=== PATIENT | female | born 1990 | race Caucasian/White ===

== ENCOUNTER 2017-02-11 19:50 | Emergency (ER) | payer BC ==
[~2017-02-11] VITALS: Ht 165.1 cm; Wt 90.7 kg
[~2017-02-11 19:50] MED LIST: BACTRIM DS 8001 TA1 PO; BACTRIM DS 8001 TAB PO; CIPRO 500MG TA500 MG PO; DARVOCET-N 1001 EACH PO; K-DUR 20MEQ TA20 MEQ PO; LORTAB 5/500 501 TAB PO; MULTIVITAMIN1 TA1 PO; PERCOCET 5/3251 EACH PO; SULFAMETHOXAZOL1 TA6 PO; TESSALON PERLE100 M1 PO; ULTRAM50 MG PO; ZITHROMAX Z PA250 MG PO
--- NOTE | 2017-02-11 20:18 | Urgent Treatment Center Report ---
History of Present Issue Date/Time Seen by Provider 02/11/17 2016 Visit Reason Pt arrived:Walked Presenting Problem:PT C/O SORE THROAT, FEVER, BILATERAL EAR PAIN AND LACK OF ENERGY X1 WEEK Location if Accident: Onset of symptoms date/time:/ or onset unknown for:MEDICAL HX UNKNOWN Have you (or family members/close friends) recently traveled outside the [place]? N If Yes, where/when: Have you had exposure to infectious disease within the past month? TB? Other? Specify: Patient presents with c/o headache, sore throat, fatigue, sinus pressure/ congestion, cough and bilateral ear pressure that started one week ago. Denies recent exposure to known ill persons. Has been taking ibuprofen without relief. ALLERGIES Coded Allergies: No Known Allergies (02/11/17) Home Medications Reported Medications POTASSIUM CHL (Potassium Chloride) 60 MEQ PO QID History Medical History General CAD? No Angina: No PA: No Hypertension? No Hyperlipidemia? No CHF? No DVT? No PE? No COPD? No Asthma? Yes Anemia? No GERD? No Gastric ulcers? No GI Bleed? No Hernia? No Thyroid Problems? No Hypothyroidism? No CVA? No Seizures? No Diabetes? No Renal Insuffiency? No UTI? No Stones? No BPH? No GB Disease: No Nephritic Syndrome? No Asplenia? No Hepatitis? No Sickle Cell Disease? No Arthritis? No Migraines? No Cataracts? No Glaucoma? No MRSA? No HIV? No TB? No Anxiety? No Depression? No Cancer? No More? No Immunization HX DT/Tetanus 5-10 YRS Surgical Hx Previous Surgery?Y RIGHT HAND Plastic R AXILLIA Social History Smoking Hx Smoker: Current Every Day Smoker Tobacco: Yes Type Cigarettes Packs/day < 1 Pack Alcohol Alcohol: No Review of Systems All Other Systems Reviewed and Negative Constitutional chills, fever Eyes denies drainage ENT ear pain, nose congestion, throat pain, throat swelling. Respiratory cough, denies shortness of breath, denies stridor, denies wheezing Gastrointestinal denies diarrhea, denies nausea, denies vomiting Skin denies no symptoms reported Physical Exam Vital Signs Vital Signs Date Time Temp Pulse Resp B/P Pulse O2 O2 Flow FiO2 Ox Delivery Rate 02/12 2048 98.6 110 20 118/79 96 02/11 2007 98.6 110 20 118/79 96 General Appearance normal appearance, WD/WN, no apparent distress Eye Exam - bilateral eye normal exam, bilateral eye PERRL Ear, Nose, Throat sinus pain/drainage (bilateral frontal/maxillary), pharyngeal erythema (moderate) Neck non-tender, full range of motion, bilateral anterior cervical adenopathy, bilateral TMs intact; right TM extremely erythematous without drainage noted; left TM without erythema, moderate serous effusion noted Respiratory Status Yes: trachea midline, chest symmetrical. No: respiratory distress. Lung Sounds bilateral: normal breath sounds. Cardiovascular regular rate/rhythm, no peripheral edema, no murmur Neurologic alert, no motor/sensory deficits, oriented x 3 Mental status normal mood/affect Skin intact, normal color, warm/dry Medical Decision Making LABS/Meds/Orders Pt receiving controlled substance in ED? No Results/Orders Laboratory Tests 02/11/171954: Group A Strep Screen NOT DETECTED Orders Procedure Date/time Status [facility] STREP SCREEN 02/11 1955 Complete Departure Departure Time of Disposition 2030 Disposition DC Home or Self Care(routine) Clinical Impression Primary Impression: Sinusitis, acute, maxillary Qualifiers: Recurrence: not specified as recurrent Qualified Code: J01.00 - Acute maxillary sinusitis, unspecified Secondary Impressions: Otitis media of right ear Qualifiers: Otitis media type: other nonsuppurative Chronicity: acute Recurrence: not specified as recurrent Qualified Code: H65.191 - Other acute nonsuppurative otitis media, right ear Condition STABLE Patient Instructions DI for Sinusitis Additional Instructions Take medications as directed. Increase fluids and rest. If symptoms persist or worsen follow-up with PCP for further evaluation. Patient verbalizes understanding. Discharge Counseling Counseled pt/family regarding diagnosis, medications/RX, home care, follow up needs Prescriptions Current Visit Scripts Fluticasone Propionate (Flonase 50 Mcg Nasal [place]) 2 SPRAY NA DAILY #1 BOT Amoxicillin/Potassium Clav (Augmentin 875-125 Tablet) 1 EACH PO Q12 #20 TAB take one tablet every 12 hours for 10 days Loratadine (Claritin 10MG) 10 MG PO DAILY #30 TAB Prednisone 5 MG PO DAILY #21 TAB take as directed for 6 days at 9921
[2017-02-11] MEDS ORDERED: FLONASE 50 MCG16 GM (20:35)
[2017-02-11] MEDS ORDERED: PREDNISONE5 M1 PO (20:38)
[2017-02-11] MEDS ORDERED: CLARITIN 10MG T10 MG PO (20:38)
[2017-02-11] MEDS ORDERED: AUGMENTIN 875-1 EACH PO (20:38)
[2017-02-11 20:48] VITALS: BP 118/79
--- OUTSIDE RECORDS SUMMARY | 2017-02-12 22:05 | External Medical Summary Rpt | CCD ---
Author Author , NICOLE RIVERA Address Unknown Phone [email or web address] Care Team Providers Care Plant Electrician Name Role Phone Mando Duff MD, Unavailable Unavailable Mando Duff MD Purpose Continuity of Care Document - 12-05-2012 through 2016 Problems Code Diagnosis DOS Provider Status 276.8 276.8 12-05-2012 [place] HYPOPOTASSE [facility] 305.1 305.1 12-05-2012 [place] TOBACCO USE [facility] [phone] 12-05-2012 [place] PNEUMONIA, [facility] NOS 493.90 493.90 12-05-2012 [place] [facility] Allergies, Adverse Reactions, Alerts Type Allergy to substance Adverse Reaction to Substance Substance Reaction Severity NO KNOWN ALLERGIES Unknown Unknown Medications Na ND Rx Da Fi Fi Am Da Di Ph RX Ph St me C No te ll ll ou ys ag ar # ys at rm s nt no ma ic us Or Da si cy ia de te s n re d SO 00 08 0 No DI 40 -0 UM 97 6- Lo 98 20 ng CH 30 13 er LO 9 RI Ac DE ti ve 0. 9% SO YADIEL TI ON ON 00 08 0 No DA 64 -0 NS 16 6- Lo ET 08 20 ng RO 02 13 er N 5 HC Ac L ti 4 ve MG /2 ML AL Po 00 08 0 No ta 24 -0 ss 50 6- Lo iu 05 20 ng m 80 13 er Ch 1 lo Ac ri ti de ve 20 ME Q Ta bl e BE 57 08 0 No NZ 66 -0 ON 40 6- Lo AT 13 20 ng AT 38 13 er E 8 10 Ac 0 ti MG ve CA PS UL E CE 00 08 0 No FT 40 -0 RI 97 6- Lo AX 33 20 ng ON 30 13 er E 4 1 Ac GM ti ve AL Vital Signs 12-05-2012 02:15 Name Value Interpretat Reference Comment ion Range BP 65 mm[Hg] Diastolic BP Systolic 113 mm[Hg] Heart 86 /min Rate/Pulse O2% 95 % Respiratory 20 /min Rate Results Labs Lab Lab Date Result Refere Interp Status Commen Order Detail nces retati t Range on COMPREHENSIVE METABOLIC PANEL (12-05-2012 00:35) Glucose 148 74-106 complet 013 mg/dL ed Bld-mCn 00:35 c BUN 12-05-2 11 7-18 complet Bld-mCn 013 mg/dL ed c 00:35 Creat 2 1.0 0.6-1.0 complet SerPl-m 013 mg/dL ed Cnc 00:35 ESTIMAT 2 126 50-200 complet ED 013 ML/MIN ed CREATIN 00:35 INE CLEARAN CE GFR 69 59- complet (ESTIMA 013 ML/MIN ed RENATA) 00:35 Sodium 12-05-2 138 136-145 complet SerPl-s 013 mmoL/L ed Cnc 00:35 Potassi 2 1.7 3.5-5.1 Low complet um 013 mmoL/L alert ed SerPl-s 00:35 Cnc Chlorid 2 95 98-107 complet e 013 mmoL/L ed SerPl-s 00:35 Cnc CO2 12-05-2 33 21.0-32 complet SerPl-s 013 mmoL/L .0 ed Cnc 00:35 Calcium 12-05-2 8.5 8.5-10. complet 013 mg/dL 1 ed SerPl-m 00:35 Cnc Prot 2 8.0 6.4-8.2 complet SerPl-m 013 gm/dL ed Cnc 00:35 Albumin 06-2 3.6 3.4-5.0 complet 013 gm/dL ed SerPl-m 00:35 Cnc Globuli 12-05-2 4.4 1.3-3.2 complet n 013 gm/dL ed Ser-mCn 00:35 c Albumin 12-05-2 0.8 UNK 1.1-1.8 complet /Glob 013 ed SerPl-m 00:35 Rto Bilirub 2 0.4 0.2-1.0 complet 013 mg/dL ed SerPl-m 00:35 Cnc AST 08-06-2 19 U/L 15-37 complet SerPl-c 013 ed Cnc 00:35 ALT 08-06-2 46 U/L 30-65 complet SerPl-c 013 ed Cnc 00:35 ALP 08-06-2 95 U/L 50-136 complet SerPl-c 013 ed Cnc 00:35 CBC with AUTO DIFF (12-05-2012 00:35) WBC # 08-06-2 9.6 4.8-10. complet Bld 013 K/MM3 8 ed Auto 00:35 RBC # 08-06-2 5.14 4.2-5.4 complet Bld 013 M/mm3 ed Auto 00:35 Hgb 08-06-2 14.4 12.2-16 complet Bld-mCn 013 g/dL .2 ed c 00:35 Hct Fr 08-06-2 42.3 % 37.0-47 complet Bld 013 .0 ed 00:35 MCV RBC 08-06-2 82.3 fl 82.2-97 complet 013 .8 ed 00:35 MCH RBC 08-06-2 28.1 pg 27-31.2 complet Qn 013 ed Auto 00:35 MEAN 08-06-2 34.1 31.8-35 complet CORPUSC 013 g/dl .4 ed ULAR 00:35 HGB CONC RDW RBC 08-06-2 14.8 % 11.5-17 complet Auto 013 .5 ed 00:35 Platele 08-06-2 235 142-424 complet t Bld 013 K/mm3 ed Ql 00:35 Manual MEAN 08-06-2 7.8 fl 7.4-10. complet PLATELE 013 4 ed T 00:35 VOLUME Granulo 08-06-2 62.9 % 37.0-80 complet cytes 013 .0 ed Fr Bld 00:35 Auto LYMPH % 08-06-2 28.8 % 10-50.0 complet 013 ed 00:35 Monocyt 08-06-2 6.4 % 1.7-9.3 complet es Fr 013 ed Bld 00:35 Auto Eosinop 08-06-2 1.4 % 0.1-12. complet hil Fr 013 0 ed Bld 00:35 Auto Basophi 08-06-2 0.5 % 0.1-2.0 complet ls Fr 013 ed Bld 00:35 Auto Granulo 08-06-2 6.1 1.8-7.8 complet cytes # 013 K/mm3 ed Bld 00:35 Auto Lymphoc 08-06-2 2.8 0.7-4.5 complet ytes Fr 013 K/mm3 ed Bld 00:35 Auto Monocyt 0806-2 0.6 0.1-1.0 complet es # 013 K/mm3 ed Bld 00:35 Auto Eosinop 08-06-2 0.1 0.0-0.4 complet hil # 013 K/mm3 ed Bld 00:35 Auto Basophi 08-06-2 0.1 0-0.2 complet ls # 013 K/MM3 ed Bld 00:35 Auto B-HCG Ur Ql (12-05-2012 00:20) B-HCG 12-05-2 NEGATIV NEG complet Ur Ql 013 E ed 00:20 URINALYSIS/COMPLETE (12-05-2012 00:20) URINE 12-05-2 YELLOW YELLOW complet COLOR 013 ed 00:20 URINE 12-05-2 CLEAR CLEAR complet APPEARA 013 ed NCE 00:20 URINE 12-05-2 NEGATIV NEG complet GLUCOSE 013 E ed - 00:20 DIPSTIC K URINE 12-05-2 NEGATIV NEG complet BILIRUB 013 E ed IN - 00:20 DIPSTIC K URINE 12-05-2 NEGATIV NEG complet KETONE 013 E mg/dL ed 00:20 URINE 12-05-2 1.020 1.005-1 complet SPECIFI 013 UNK .030 ed C 00:20 GRAVITY URINE 12-05-2 2+ NEG complet BLOOD 013 ed 00:20 URINE 12-05-2 6.5 UNK 5.0-8.5 complet PH 013 ed 00:20 URINE 0806-2 TRACE NEG complet PROTEIN 013 mg/dL ed - 00:20 DIPSTIC K URINE 12-05-2 0.2 NEG complet UROBILI 013 E.U./dL ed NOGEN - 00:20 DIPSTIC K URINE 0806-2 NEGATIV NEG complet NITRATE 013 E ed - 00:20 DIPSTIC K URINE 0806-2 TRACE NEG complet LEUK 013 ed ESTERAS 00:20 E URINE 12-05-2 3-5 0 complet RBC 013 rbc/hpf ed 00:20 URINE 0806-2 3-5 O complet WBC 013 wbc/hpf ed 00:20 URINE 10-20 0-5 complet SQUAMOU 013 #/hpf ed S CELLS 00:20 URINE TRACE O complet BACTERI 013 ed A 00:20 URINE OCC OCC complet MUCUS 013 ed 00:20 Encounters Encounter Start End Date Code Location Performer Type Date Emergency ANA Duff MD (ER) 3 00:20 3 02:23 [facility]
--- OUTSIDE RECORDS SUMMARY | 2017-02-12 22:05 | External Medical Summary Rpt | CCD ---
Author Author , NICOLE RIVERA Address Unknown Phone [email or web address] Providers Care Arabic Professor Name Role Phone Mando Duff MD, Unavailable Unavailable Mando Duff MD Purpose Continuity of Care Document - 12-05-2012 through 2016 Problems Code Diagnosis DOS Provider Status 276.8 276.8 12-05-2012 [place] HYPOPOTASSE [facility] 305.1 305.1 12-05-2012 [place] TOBACCO USE [facility] 486 486 12-05-2012 [place] PNEUMONIA, [facility] NOS [phone] 12-05-2012 [place] ASTHMA, [facility] Allergies, Adverse Reactions, Alerts Type [...] Duff MD (ER) 3 00:20 3 02:23 [facility]
--- OUTSIDE RECORDS SUMMARY | 2017-02-12 22:06 | External Medical Summary Rpt | CCD ---
Author Author , NICOLE Organization NICOLE Address Unknown Phone [email or web address] Immunization Name Date Rout CVX Reac Dose Comm Prov Is Faci e tion ent ider Refu lity Give sed n HPV4 01-1 62 999 Hist H149 No H149 4-20 oric (Gar 08 al dasi Info l) rmat ion - Sour ce Unsp ecif ied HPV4 11-1 62 999 Hist H149 No H149 3-20 oric (Gar 07 al dasi Info l) rmat ion - Sour ce Unsp ecif ied Tdap 08-3 115 999 Hist H149 No H149 , 0-20 oric Adso 06 al rbed Info rmat ion - Sour ce Unsp ecif ied
--- OUTSIDE RECORDS SUMMARY | 2017-02-12 22:06 | External Medical Summary Rpt | CCD ---
Author Author [employer] Organization [employer] Address Unknown Phone Unavailable Purpose Continuity of Care Document - through 2016
--- OUTSIDE RECORDS SUMMARY | 2017-02-12 22:06 | External Medical Summary Rpt | CCD ---
Author Author , NICOLE Organization NICOLE Address Unknown Phone [email or web address] Immunization Name Date Rout CVX Reac Dose [...]
--- OUTSIDE RECORDS SUMMARY | 2017-02-12 22:06 | External Medical Summary Rpt ---
Author Author NICOLE Stevenson, [employer] Organization [employer] Address Unknown Phone Unavailable
== END 2017-02-11 20:48 | disposition home or self-care (01) ==
LOC: UTC 19:50
DX: J01.00 Acute maxillary sinusitis, unspecified (principal); H65.191 Other acute nonsuppurative otitis media, right ear; J45.909 Unspecified asthma, uncomplicated; F17.210 Nicotine dependence, cigarettes, uncomplicated